=== PATIENT | male | born 1980 | race Caucasian/White ===

== ENCOUNTER 2017-09-23 08:26 | Day surgery (SDC) | payer BC ==
[2017-09-23] MEDS ORDERED: OXYMETAZOLINE HCL 0.05% 30ML NAS ONE ×2 (08:51→10:48)
[2017-09-23] MEDS ORDERED: Ringers Lactate 1,000 ML IV ONE ×2 (08:57→12:25)
[2017-09-23] MEDS ORDERED: LIDOCAINE 1% W/EPI 1:100,000 MDV 50 ML VIAL ONE (10:48)
[2017-09-23] MEDS ORDERED: NA CHLORIDE 0.9% 500 ML ONE (10:49)
[2017-09-23] MEDS ORDERED: MIDAZOLAM HCL 2 MG/2 ML INJ ONE (10:57)
[2017-09-23] MEDS ORDERED: LIDOCAINE 1% MPF 5 ML VIAL ONE (10:57)
[2017-09-23] MEDS ORDERED: PROPOFOL 200 MG/20 ML VIAL IV ONE (10:57)
[2017-09-23] MEDS ORDERED: ROCURONIUM 50 MG/5 ML VIAL IV ONE (10:58)
[2017-09-23] MEDS ORDERED: FENTANYL CITR 100 MCG/2 ML ONE ×2 (10:58→11:27)
[2017-09-23] MEDS ORDERED: KETOROLAC 30 MG/ML INJ ONE (12:01)
[2017-09-23] MEDS ORDERED: ONDANSETRON 4 MG/2 ML VIAL ONE (12:01)
[2017-09-23] MEDS ORDERED: GLYCOPYRROLATE 0.2 MG/ML SYR ONE (12:01)
[2017-09-23] MEDS ORDERED: NEOSTIGMINE 1 MG/ML -5 ML SYRINGE ONE (12:22)
[2017-09-23] MEDS ORDERED: MORPHINE 10 MG/ML VIAL ONE (12:23)
--- NOTE | 2017-09-23 12:37 | P.BOP ---
Preoperative diagnosis: septal deviation, turb hypertrophy Postoperative diagnosis: same Primary procedure: septoplasty, ITR Cinnamon Grinder: NONE,NONE Estimated blood loss: 15ml Specimen: none Findings: septum displaced off crest to L Anesthesia: General Complications: None Implants: gelfoam packing B NC Transferred to: Recovery Room Condition: Good
[2017-09-23] MEDS ORDERED: TRAMADOL HCL 50 MG TAB ONE (13:22)
--- NOTE | 2017-09-24 01:53 | OP ---
Date of Procedure: 09/23/2017 Surgeon: Lisa Boggs MD Preoperative Diagnoses: Deviated septum, inferior turbinate hypertrophy, and nasal obstruction. Postoperative Diagnoses: Deviated septum, inferior turbinate hypertrophy, and nasal obstruction. Procedures Performed: Septoplasty and inferior turbinate reduction. Description Of Procedure: The patient was brought to the operating room. He was placed under genera l anesthesia via oral endotracheal tube. The head of bed was turned 90 degrees. The patient's nasal hairs did not require trimming. The septum was injected with 1% lidocaine with epinephrine and pack ed with Afrin-soaked pledgets. The patient's face was prepped and draped in standard fashion for serena al surgery. A right-sided hemitransfixion incision was made through the mucosa and bilateral septal flaps were developed using the Rocio elevator. A small tear in the left septal flap was created dur ing elevation. Once the septal flaps were elevated, it was apparent that the patient's quadrangular cartilage had slipped off the maxillary crest and into the left nasal cavity creating the appearance of a prominent maxillary crest bilaterally. This cartilage was carefully mobilized and the maxillary crest was shaped using the microdebrider to carefully shave small amounts of bone to create a narrow er maxillary crest. A portion of the cartilage and bony septum causing deviation more posteriorly wa s removed using a scalpel, scissors, and Kathie. The septal cartilage was then replaced in its pr oper position on the maxillary crest. This was secured with a 4-0 PDS suture. The attention was the n turned to the inferior turbinates. A small stab incision was made in the head of the bilateral inf erior turbinates and a pocket was developed using the Rocio elevator. The inferior turbinate blade on the microdebrider was used to perform submucosal resection and to reduce the overall tissue volume . A Meyers elevator was used to down fracture the inferior turbinates in order to further open the internal nasal valve and improve the nasal airway. The septal flaps were then approximated using a q uilting stitch securing the flaps and the cartilaginous septum together. The hemitransfixion incisio n was closed in a running fashion using a fast-absorbing gut suture. The nasopharynx was suctioned a nd a 2 x 4 cm piece of Gelfoam was divided and placed 1 in each of the right and left nasal cavities to aid in hemostasis from the turbinate incision sites. The patient was returned to care of anesthes ia, awakened, and extubated in the operating room and transferred to the recovery room in stable cond ition. Estimated Blood Loss: 50 mL. Specimen: None. Complications: None. Implants: None. Disposition: The patient will be discharged home later today in the care of his family and follow up with Dr. Boggs in 10 days for further evaluation. QASIM/CLARISSA Voice ID: [id number] Report ID: [id number]
== END 2017-09-23 13:50 | disposition home or self-care (01) ==
LOC: OR 08:26
PROVIDERS: ATTEND Otolaryngology
PROC: 09BM8ZZ Excision of Nasal Septum, Via Natural or Artificial Opening Endoscopic (ICD-10-PCS; principal; 2017-09-23 10:00)
DX: J34.2 Deviated nasal septum (principal); J34.3 Hypertrophy of nasal turbinates; J34.89 Other specified disorders of nose and nasal sinuses; Z80.9 Family history of malignant neoplasm, unspecified; Z82.3 Family history of stroke; Z82.5 Family history of asthma and other chronic lower respiratory diseases; Z83.3 Family history of diabetes mellitus; Z83.79 Family history of other diseases of the digestive system
CPT/HCPCS: J2250; J2405; J2710; J3010

== ENCOUNTER 2021-02-27 07:05 | Day surgery (SDC) | payer BC ==
--- NOTE | 2021-02-25 15:40 | EKG ---
Test Date: 2021-02-24 Test Time: 13:00:40 Director Physical: TG MEASUREMENT RESULTS: Intervals: Rate: 53 WI: 154 QRSD: 108 QT: 442 QTc: 414 Sully: P: 36 WI: 154 QRS: -47 T: 16 INTERPRETIVE STATEMENTS: Sinus bradycardia Left anterior fascicular block Possible Anterior infarct, age undetermined Abnormal ECG No previous ECG available for comparison Electronically Signed On 02-25-21 15:37:11 CDT by Jethro Griffith
[2021-02-27] MEDS ORDERED: Ringers Lactate 1,000 ML IV ONE (07:33)
[2021-02-27] MEDS ORDERED: LIDOCAINE 1% W/EPI 1:100,000 MDV 20 ML VIAL ONE (07:37)
[2021-02-27] MEDS ORDERED: MIDAZOLAM HCL 2 MG/2 ML INJ ONE (08:17)
[2021-02-27] MEDS ORDERED: dexAMETHasone 10 MG/ML VIAL ONE (08:17)
[2021-02-27] MEDS ORDERED: propofoL 200 MG/20 ML VIAL IV ONE (08:17)
[2021-02-27] MEDS ORDERED: FENTANYL CITR 100 MCG/2 ML ONE (08:17)
[2021-02-27] MEDS ORDERED: LIDOCAINE 2% MPF 5 ML VIAL ONE (08:19)
--- NOTE | 2021-02-27 09:04 | P.BOP ---
Preoperative diagnosis: lipoma, right neck Postoperative diagnosis: same Primary procedure: excision subfacsial neck mass, 3cm Diamond Grinder: GHAZAL URIAS Estimated blood loss: <5ml Specimen: right neck mass, permanent section Findings: 3cm fatty well circumscribed lesion Anesthesia: General Complications: None Implants: none Fluids & blood products: 850ml crystalloid Transferred to: Recovery Room Condition: Good
[2021-02-27 10:34] VITALS: BP 131/49; TEMP 97.2; O2SAT 100
--- NOTE | 2021-02-27 16:25 | OP ---
Date of Procedure: 02/27/2021 Surgeon: Lisa Boggs MD Preoperative Diagnosis: Right neck mass suspicious for lipoma. Postoperative Diagnosis: Right neck mass suspicious for lipoma. Procedure: Excision of subfascial soft tissue mass measuring 3 cm. Indication For Procedure: Tc presented to the [facility] with complaints of right neck mass whi ch had been slowly growing over a number of years. After discussing the risks, benefits, and alterna tives, he elected for surgical excision. Stained Glass Glazier Helper: Diana Bishop. Estimated Blood Loss: Less than 5 mL. Description Of Procedure In Detail: The patient was brought to the operating room. He was placed un luis general anesthesia via LMA. The neck was extended and head turned towards the left for exposure of the right neck. The planned incision site was injected with 3 mL of 1% lidocaine with epinephrine . The neck was prepped with Betadine and draped in sterile fashion. A 3 cm incision was made throug h the skin and subcutaneous tissue using a 15 blade scalpel. The platysma was identified and the are a was palpated confirming that the lipomatous mass was deep to the platysma. The Bovie electrocauter y was then used to incise through the platysma muscle, which was elevated superiorly and inferiorly r evealing a round, well-circumcised, approximately 3 cm lipomatous-appearing tumor. The capsule aroun d the tumor was carefully elevated and divided using Bovie electrocautery. The posterior aspect of t he tumor was lying just inferior or deep to the anterior border of the sternocleidomastoid muscle. T he muscle was judiciously elevated over the tumor and retracted to allow for dissection around the de eper aspects of the mass. After complete removal, the specimen was set aside and the surgical bed wa s examined. The strap muscle and sternocleidomastoid muscle were intact with no evidence of bleeding . The surgical bed was irrigated. The platysma layer was then reapproximated using 4-0 Vicryl inter rupted sutures. The skin was then closed in a layered fashion using 4-0 Vicryl and 5-0 Monocryl subc uticular sutures. The skin was then cleaned and dried. Mastisol and Steri-Strips were applied to th e incision. The patient was returned to care of Anesthesia for awakening and extubation in the opera ting room, which proceeded without difficulty. Complications: None. Implants: None. Disposition: The patient will be discharged home later today with lifting restrictions and follow up with Dr. Boggs in 10 days for wound evaluation and pathology discussion. KANWAL Voice ID: [id number] Report ID: [id number]
== END 2021-02-27 10:16 | disposition home or self-care (01) ==
LOC: OR 07:05
PROVIDERS: ATTEND Otolaryngology
PROC: 0JB40ZZ Excision of Right Neck Subcutaneous Tissue and Fascia, Open Approach (ICD-10-PCS; principal; 2021-02-27 08:00)
DX: D17.0 Benign lipomatous neoplasm of skin and subcutaneous tissue of head, face and neck (principal); U07.1 COVID-19
CPT/HCPCS: 93005; 88304; 11423; U0002; J2704; J2250; J3010; J1100; J7120; 88305